=== PATIENT | male | born 1980 | race Caucasian/White ===

== ENCOUNTER 2017-01-20 16:02 | Emergency (ER) | payer SELFPAY ==
[~2017-01-20] VITALS: Ht 182.9 cm; Wt 74.4 kg
[2017-01-20 16:05] VITALS: Ht 182.9 cm; Wt 74.4 kg
--- NOTE | 2017-01-20 16:36 | EMERGENCY ROOM VISIT NOTE ---
History First contact with patient: 16:17 Chief Complaint: EDEMA TO EXTREMITY Stated Complaint: SWOLLEN R FOOT X3 WKS SHOOTING PAIN UP LEG SINCE History of Present Illness The patient is a 36 year old male who presents to the Emergency Room with complaints of right foot and leg swelling. The patient states that 3 weeks ago , he first noticed pain in the right foot and when he took his shoe and sock off noticed that the foot was more swollen than usual. 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 One week after the onset of pain, the pain began to radiate into the calf. He states that now, the pain is radiating into his thigh. At first, the patient states that compression seems to help with the pain. He has been on his feet a lot recently for work this month. He denies any history of similar symptoms. He rates his discomfort an 8/10 and states it is intermittent. The pain is not associated with walking or weightbearing. He denies any history or family history of blood clots. He does not smoke. He denies any recent travel. He denies any redness, warmth or fevers. He denies any numbness or weakness in the leg. Review of Systems A complete 10 point review of systems was reviewed with the patient with pertinent positives and negatives as per history of present illness. All else were negative. Social History Smoking Status: Never Smoker Alcohol Use: occasionally Drug Use: none Marital Status: single Housing Status: lives with family Occupation Status: employed Current/Historical Medications Scheduled Rivaroxaban (Xarelto), 15 MG PO BID Physical Exam Vital Signs Date Time Temp Pulse Resp B/P (MAP) Pulse Ox O2 Delivery O2 Flow Rate FiO2 01/20/17 20:24 36.5 56 16 126/82 98 01/20/17 18:45 58 16 112/66 98 Room Air 01/20/17 16:05 36.5 73 20 125/77 95 Room Air Physical Exam VITALS: Vitals are noted on the nurse's note and reviewed by myself. Vital signs stable. GENERAL: This is a 36-year-old male, in no acute distress, nondiaphoretic, well- developed well-nourished. HEART: Regular rate and rhythm without murmurs gallops or rubs. LUNGS: Clear to auscultation bilaterally without wheezes, rales or rhonchi. No retractions or accessory muscle use. MUSCULOSKELETAL: No deformities of the right leg or foot. No obvious swelling, erythema or ecchymosis. There is diffuse, vague tenderness to palpation of the right foot, calf and thigh. Full range of motion and strength 5/5 in the lower extremities. Dorsalis pedis pulse 2+. Capillary refill within 2 seconds. NEURO: Patient was alert and oriented to person place and time. Normal sensation to light and sharp touch. Medical Decision & Procedures ER Provider Diagnostic Interpretation: RIGHT FOOT MIN 3 VIEWS ROUTINE IMPRESSION: 1. No acute fracture or dislocation within the right foot. 2. Hallux valgus deformity with mild osteoarthritis of the right first and fifth metatarsophalangeal joints. ULTRASOUND RIGHT LOWER EXTREMITY VENOUS IMPRESSION: 1. There is no sonographic evidence of deep venous thrombosis identified in the right lower extremity. 2. There is extensive superficial venous thrombus in the right lower extremity throughout the greater saphenous vein extending from the thigh into the calf. Laboratory Results 01/20/17 19:15 Red Blood Count 4.96, Mean Corpuscular Volume 86.5, Mean Corpuscular Hemoglobin 30.6, Mean Corpuscular Hemoglobin Concent 35.4, Mean Platelet Volume 11.3, Neutrophils (%) (Auto) 59.8, Lymphocytes (%) (Auto) 24.5, Monocytes (%) (Auto) 13.7, Eosinophils (%) (Auto) 1.6, Basophils (%) (Auto) 0.2, Neutrophils # (Auto ) 5.51, Lymphocytes # (Auto) 2.26, Monocytes # (Auto) 1.26, Eosinophils # (Auto ) 0.15, Basophils # (Auto) 0.02 01/20/17 19:15 Test 01/20/17 16:38 01/20/17 19:15 Bedside Glucose 114 mg/dl (70-99) White Blood Count 9.22 K/uL (4.8-10.8) Red Blood Count 4.96 M/uL (4.7-6.1) Hemoglobin 15.2 g/dL (14.0-18.0) Hematocrit 42.9 % (42-52) Mean Corpuscular Volume 86.5 fL (80-100) Mean Corpuscular Hemoglobin 30.6 pg (25-34) Mean Corpuscular Hemoglobin Concent 35.4 g/dl (32-36) Platelet Count 161 K/uL (130-400) Mean Platelet Volume 11.3 fL (7.4-10.4) Neutrophils (%) (Auto) 59.8 % Lymphocytes (%) (Auto) 24.5 % Monocytes (%) (Auto) 13.7 % Eosinophils (%) (Auto) 1.6 % Basophils (%) (Auto) 0.2 % Neutrophils # (Auto) 5.51 K/uL (1.4-6.5) Lymphocytes # (Auto) 2.26 K/uL (1.2-3.4) Monocytes # (Auto) 1.26 K/uL (0.11-0.59) Eosinophils # (Auto) 0.15 K/uL (0-0.5) Basophils # (Auto) 0.02 K/uL (0-0.2) RDW Standard Deviation 38.5 fL (36.4-46.3) RDW Coefficient of Variation 12.1 % (11.5-14.5) Immature Granulocyte % (Auto) 0.2 % Immature Granulocyte # (Auto) 0.02 K/uL (0.00-0.02) Prothrombin Time 10.6 SECONDS (9.0-12.0) Prothromb Time International Ratio 1.0 (0.9-1.1) Activated Partial Thromboplast Time 27.1 SECONDS (21.0-31.0) Partial Thromboplastin Ratio 1.0 Anion Gap 4.0 mmol/L (3-11) Est Creatinine Clear Calc Drug Dose 106.5 ml/min Estimated GFR () 111.5 Estimated GFR (Non- 96.2 BUN/Creatinine Ratio 21.9 (10-20) Calcium Level 8.5 mg/dl (8.5-10.1) Medications Administered Medications (Trade) Dose Ordered Sig/Colt Route Start Time Stop Time Status Last Admin Dose Admin Rivaroxaban (Xarelto Tab) 15 mg NOW STAT PO 01/20/17 20:08 01/20/17 20:09 DC 01/20/17 20:22 15 MG Medical Decision Differential diagnosis includes fracture, contusion, sprain, cellulitis, DVT, superficial thrombosis, among others. The patient is a 36-year-old male who presents today complaining of right leg swelling. X-ray of the foot was obtained and was unremarkable. Ultrasound of the leg showed extensive superficial thrombosis. This will require anticoagulation. Per the most recent literature, there is no difference in efficacy between Coumadin/Lovenox and rivaroxaban. I had a lengthy discussion with the patient regarding the risks/benefits of each of these medications. He does not feel that he can be compliant with the Lovenox and Coumadin and would much rather take the rivaroxaban. I did discuss the limitations of this medication, including the lack of a reversal patient. I explained that if he has any head injury or other significant trauma he will need to come to the emergency department for evaluation. The patient acknowledges these risks and feels that this is the best option for him. Baseline labs were drawn. Case management that with the patient regarding cost of the medication and follow-up. The patient does not have a PCP and will need follow-up within 1-2 weeks. Conservative measures were discussed with the patient and he was instructed to return here if you develop any worsening symptoms, chest pain or shortness of breath. The patient verbalizes understanding of my assessment and treatment plan and was discharged home in good condition. Medication Reconcilliation Current Medication List: was personally reviewed by me Blood Pressure Screening Patient's blood pressure: Normal blood pressure Impression Primary Impression: Superficial thrombosis of right lower extremity Departure Information Dispostion Home / Self-Care Condition GOOD Prescriptions Rivaroxaban (XARELTO) 15 Mg Tab 15 MG PO BID for 21 Days, #42 TAB Prov: Sarah Berry .CHEO 01/20/17 Referrals No Doctor, Assigned (PCP) Patient Instructions My [facility] Additional Instructions Xarelto twice daily as prescribed. For pain control, you can use the following elar-blr-vjkrzci medicines (if >12 yo): - Regular strength (325mg/tab) Tylenol (acetaminophen) 2 tabs every 4-6 hours as needed. Do not exceed 12 tablets in a 24 hour period. Avoid taking more than 4 grams (4000 mg) of Tylenol per day. This includes any other sources of acetaminophen you may take on a regular basis. You will need follow-up with a primary care provider within 2 weeks for further evaluation and prescriptions. Return here with any chest pain, shortness of breath, worsening pain or any other new/concerning symptoms.
--- NOTE | 2017-01-20 17:25 | DIAGNOSTIC IMAGING REPORT ---
RIGHT FOOT MIN 3 VIEWS ROUTINE CLINICAL HISTORY: Right foot pain. No injury. COMPARISON: None FINDINGS: Tarsometatarsal joints are intact. No fracture or suspicious lesion is identified on this exam. There is hallux valgus deformity with mild osteoarthritis of the right first metatarsophalangeal joint. There is mild osteoarthritis of the fifth metatarsophalangeal joint is well. IMPRESSION: 1. No acute fracture or dislocation within the right foot. 2. Hallux valgus deformity with mild osteoarthritis of the right first and fifth metatarsophalangeal joints. Electronically signed by: Yon Andrews M.D. 01/20/2017 5:24 PM Dictated Date/Time: 01/20/2017 5:22 PM
--- NOTE | 2017-01-20 18:40 | DIAGNOSTIC IMAGING REPORT ---
ULTRASOUND RIGHT LOWER EXTREMITY VENOUS CLINICAL HISTORY: Right foot and leg pain. COMPARISON STUDY: No priors. TECHNIQUE: Real-time, grayscale, and color Doppler sonography of the deep veins of the right lower extremity was performed from the inguinal crease to the calf. Compression and augmentation were utilized. FINDINGS: There is no sonographic evidence of deep venous thrombosis identified in the right lower extremity. The common femoral, superficial femoral, and popliteal veins are patent and normally compressible. There is extensive superficial venous thrombus seen in the right greater saphenous vein extending into the calf. The profunda femoris vein at the junction with the common femoral vein is Clear. The visualized calf veins are patent. IMPRESSION: 1. There is no sonographic evidence of deep venous thrombosis identified in the right lower extremity. 2. There is extensive superficial venous thrombus in the right lower extremity throughout the greater saphenous vein extending from the thigh into the calf. Electronically signed by: Dann Viera M.D. 01/20/2017 6:38 PM Dictated Date/Time: 01/20/2017 6:37 PM
[2017-01-20 19:24] LABS: BASO % 0.2 %; BASO ABS # 0.02 K/uL (0-0.2); COMPLETE YES; EOS % 1.6 %; HEMATOCRIT 42.9 % (42-52); IG% 0.2 %; LYMPH % 24.5 %; LYMPH ABS # 2.26 K/uL (1.2-3.4); MEAN CELL VOLUME 86.5 fL (80-100); MEAN CORPUSCULAR HEMOGLOBIN 30.6 pg (25-34); MEAN CORPUSCULAR HGB CONC 35.4 g/dl (32-36); MEAN PLATELET VOLUME 11.3 fL (7.4-10.4); MONO % 13.7 %; NEUT % 59.8 %; PLATELET COUNT 161 K/uL (130-400); RED BLOOD COUNT 4.96 M/uL (4.7-6.1); WHITE BLOOD COUNT 9.22 K/uL (4.8-10.8)
[2017-01-20 19:33] LABS: PROTHROMBIN TIME (PATIENT) 10.6 SECONDS (9.0-12.0)
[2017-01-20 19:41] LABS: BUN/CREATININE RATIO 21.9 (10-20); CALCIUM 8.5 mg/dl (8.5-10.1); CREATININE 0.99 mg/dl (0.60-1.40); POTASSIUM 3.9 mmol/L (3.5-5.1)
[2017-01-20] MEDS ORDERED: RIVAROXABAN 20 MG TAB PO STA (20:03)
[2017-01-20] MEDS ORDERED: RIVAROXABAN TAB 15 MG TAB PO STA (20:08)
[2017-01-20] MEDS ORDERED: RIVA1.5T PO (20:09)
[2017-01-20 20:24] VITALS: BP 126/82; PULSE 56; TEMP 36.5; O2SAT 98
== END 2017-01-20 20:25 | disposition home or self-care (01) ==
LOC: C.EDB 16:04 → C.EDD 20:25
DX: I82.811 Embolism and thrombosis of superficial veins of right lower extremity (principal)

== ENCOUNTER 2017-08-23 11:49 | Emergency (ER) | payer SELFPAY ==
[~2017-08-23] VITALS: Ht 180.3 cm; Wt 77.4 kg
[~2017-08-23 11:49] MED LIST: RIVA1.5T PO
[2017-08-23 12:07] VITALS: TEMP 36.7; Ht 180.3 cm; Wt 77.4 kg
[2017-08-23] MEDS ORDERED: AMOXICILLIN/CLAVULANATE TAB 875 MG TAB PO ONE (12:15)
[2017-08-23] MEDS ORDERED: XYLOCAINE 1%/SOD BICARB 20 ML VIAL INFIL ONE (12:15)
[2017-08-23] MEDS ORDERED: OXYCODONE/ACETAMINOPHEN 5-325 TAB PO STA (12:15)
[2017-08-23] MEDS ORDERED: IBUPROFEN 600 MG TAB PO STA (12:15)
--- NOTE | 2017-08-23 12:41 | DIAGNOSTIC IMAGING REPORT ---
RIGHT HAND 3 VIEWS CLINICAL HISTORY: Right hand injury. Dog bite. FINDINGS: 3 views of the right hand are obtained. No prior studies are available for comparison at the time of dictation. The skeletal structures are well mineralized. No acute fracture is seen. A chronic avulsion injury is suggested at the base of the third middle phalanx. The joint spaces of the hand are preserved. Soft tissues are normal as visualized. IMPRESSION: There is no radiographic evidence of right hand fracture. Electronically signed by: Dann Viera M.D. 08/23/2017 12:39 PM Dictated Date/Time: 08/23/2017 12:31 PM
[2017-08-23] MEDS ORDERED: CLX/20 PO (13:00)
[2017-08-23] MEDS ORDERED: AMOX875T PO (13:31)
--- NOTE | 2017-08-23 13:32 | EMERGENCY ROOM VISIT NOTE ---
ED Visit Note First contact with patient: 12:09 CHIEF COMPLAINT: Dog bite with laceration to the right hand just prior to arrival HISTORY OF PRESENT ILLNESS: Patient is a left-hand dominant 37-year-old male who presents emergency department for evaluation of a dog bite with laceration to the right hand that he sustained just prior to arrival. He states that he was trying to break up a fight between his dogs, 1 1 of them bit him on his right hand. He notes 2 lacerations to the palm of the right hand and several other scratches. Patient reports that his tetanus is up-to-date, and the dog's rabies and distemper vaccinations are current. He rates his pain an 8/10. He cleansed the area with hydrogen peroxide. The bleeding stopped shortly after the injury and there is no weakness or numbness of the hand or fingers. REVIEW OF SYSTEMS: Review of systems as per HPI. All other systems reviewed were negative. 10 systems reviewed. PMH: Electronic medical records are reviewed and summarized as above/below. See Problem List. Patient's tetanus is up-to-date. SOCIAL HISTORY: Patient lives at home with family. Employed. He does not smoke.. PHYSICAL EXAM: Vital Signs: Reviewed Nurse's notes. There are 2, 3 centimeter lacerations on the palmar aspect of the right hand, over the thenar eminence. There is moderate soft tissue swelling over the first metacarpal. He does have a very small puncture wound on the dorsal aspect of the right follow-up which is nonrepairable. The edges of the larger laceration are gaping widely apart. There is no foreign material in the wound and it looks clean. There is no active bleeding. No deep structures such as tendons or nerves are seen in the base of the wound. Extension and flexion and circumduction of the right thumb is full and strong. Sensation to pain and light touch is intact. Capillary refill is less than 2 seconds. EMERGENCY DEPARTMENT COURSE: The patient was seen and evaluated as above. Ice pack was applied. He was medicated with ibuprofen, Percocet and Augmentin 1 tablet orally. X-rays of the right hand were obtained and were negative for acute fracture. Using sterile technique, saline and Betadine cleansing, and 1% lidocaine anesthesia, the lacerations were irrigated copiously with saline and then loosely reapproximated with a total of 6, 5-0 nylon sutures. The patient tolerated the procedure well. Wound care measures were discussed. The patient will be placed on Augmentin. He was counseled regarding the signs and symptoms of infection for which she should return to the emergency department. At this time, there is no evidence for infection, no fracture and I do not suspect nerve or tendinous injury. Blood pressure screening : Patient was found to have normal blood pressure on screening and does not require follow-up. Medication reconciliation: I attest that I have personally reviewed the patient' s current medication list. RIGHT HAND 3 VIEWS CLINICAL HISTORY: Right hand injury. Dog bite. FINDINGS: 3 views of the right hand are obtained. No prior studies are available for comparison at the time of dictation. The skeletal structures are well mineralized. No acute fracture is seen. A chronic avulsion injury is suggested at the base of the third middle phalanx. The joint spaces of the hand are preserved. Soft tissues are normal as visualized. IMPRESSION: There is no radiographic evidence of right hand fracture. Problem List Medical Problems: (1) Head injury Status: Resolved (2) Laceration of pinna Status: Resolved (3) Maxillary fracture Status: Resolved (4) Superficial thrombosis of right lower extremity Status: Resolved Current/Historical Medications Scheduled Amoxicillin & Pot Clavulanate (Augmentin 875-125 mg), 1 TAB PO BID Citalopram (Citalopram Hydrobromide), 20 MG PO DAILY Allergies Coded Allergies: No Known Allergies (Unverified , 08/23/17) Vital Signs Date Time Temp Pulse Resp B/P (MAP) Pulse Ox O2 Delivery O2 Flow Rate FiO2 08/23/17 13:58 76 20 116/59 96 08/23/17 12:07 36.7 86 18 110/70 97 Room Air Medications Administered Medications (Trade) Dose Ordered Sig/Colt Route Start Time Stop Time Status Last Admin Dose Admin Ibuprofen (Motrin Tab) 600 mg NOW STAT PO 08/23/17 12:15 08/23/17 12:17 DC 08/23/17 12:32 600 MG Oxycodone/ Acetaminophen (Percocet 5-325mg Tab) 2 tab NOW STAT PO 08/23/17 12:15 08/23/17 12:17 DC 08/23/17 12:33 2 TAB Amoxicillin/ Clavulanate Potassium (Augmentin Tab) 875 mg NOW ONCE PO 08/23/17 12:15 08/23/17 12:17 DC 08/23/17 12:32 875 MG Departure Information Impression Primary Impression: Laceration of right hand Additional Impression: Dog bite Prescriptions Amoxicillin & Pot Clavulanate (Augmentin 875-125 mg) 1 Tab Tab 1 TAB PO BID, #20 TAB Prov: Margarita Alarcon PA 08/23/17 Referrals No Doctor, Assigned (PCP) Patient Instructions My [facility] Additional Instructions DO NOT drive, drink alcohol, operate machinery, or perform dangerous activities today. You were given medications in the ER that can affect your ability to safely function or operate a vehicle. Augmentin 875 mg: Take one pill twice daily for 10 days to prevent wound/skin infection. All antibiotics can cause diarrhea. If this occurs and you feel worse or it does not resolve in 1-2 days follow up with your doctor or return to the Emergency Department as this could be signs of serious underlying problems. Any medication can cause an allergic reaction, stop the pills immediately and return to the ER for rash, hives, breathing difficulties, or swelling. Keep wounds clean and dry. Do not allow any crusting or dried blood to accumulate on sutures. Clean gently with mild soap and water. Use an antibiotic ointment for 3-4 days, then let wound dry. Suture removal in 12-14 days. Return sooner for any signs of infection (increasing redness, swelling, drainage). Ice and elevate for swelling and pain. Ibuprofen 600 mg and Tylenol 1000 mg every 6 hrs for pain. Problem Qualifiers Primary Impression: Laceration of right hand Encounter type: initial encounter Foreign body presence: without foreign body Qualified Codes: S61.411A - Laceration without foreign body of right hand , initial encounter Additional Impression: Dog bite Encounter type: initial encounter Qualified Codes: W54.0XXA - Bitten by dog , initial encounter
[2017-08-23 13:58] VITALS: BP 116/59; PULSE 76; O2SAT 96
== END 2017-08-23 14:01 | disposition home or self-care (01) ==
LOC: C.EDB 11:51 → C.EDD 14:01
DX: S61.451A Open bite of right hand, initial encounter (principal); W54.0XXA Bitten by dog, initial encounter